=== PATIENT | male | born 1950 | race Caucasian/White ===

== ENCOUNTER 2017-06-29 09:57 | Inpatient (IN) ==
[2017-06-29] MEDS ORDERED: ZOSYN 3.375 GM in NS 50 ML IV SCH (12:30)
[2017-06-29] MEDS: MORPHINE IV PRN ×2 (12:44→17:54)
[2017-06-29] MEDS ORDERED: FENTANYL ONE (13:10)
[2017-06-29] MEDS ORDERED: DIPRIVAN 1% ONE (13:10)
[2017-06-29] MEDS ORDERED: XYLOCAINE-MPF 2% ONE (13:11)
[2017-06-29] MEDS ORDERED: SENSORCAINE 0.5%-EPI 1:200,000 ONE (13:13)
[2017-06-29] MEDS ORDERED: LR 1,000 ML ONE (13:13)
[2017-06-29] MEDS ORDERED: ZOSYN 3.375 GM in NS 50 ML IV ONE (13:35)
[2017-06-29] MEDS ORDERED: VERSED ONE (13:56)
[2017-06-29] MEDS ORDERED: ROBINUL ONE (14:32)
[2017-06-29] MEDS ORDERED: MORPHINE ONE (15:54)
[2017-06-29] MEDS ORDERED: ZOFRAN IV PRN (16:31)
[2017-06-29] MEDS: ZOSYN 3.375 GM in NS 50 ML IV SCH ×2 (16:37→21:37)
[2017-06-29] MEDS: FISH OIL CONCENTRATE PO SCH (21:38)
[2017-06-29] MEDS: PRILOSEC PO SCH (21:38)
[2017-06-29] MEDS: PERIDEX MT SCH (21:38)
[2017-06-29] MEDS: REMERON PO SCH ×2 (21:38→21:39)
[2017-06-29] MEDS: NORCO-10 PO PRN (21:38)
[2017-06-30] MEDS: MORPHINE IV PRN ×8 (00:15→21:26)
[2017-06-30] MEDS: ZOSYN 3.375 GM in NS 50 ML IV SCH ×4 (05:04→21:20)
[2017-06-30] MEDS ORDERED: BLISTEX MEDICATED BERRY LIP BALM TOP ONE (05:46)
[2017-06-30] MEDS: PRILOSEC PO SCH ×2 (08:06→20:05)
[2017-06-30] MEDS: FISH OIL CONCENTRATE PO SCH ×2 (08:06→20:05)
[2017-06-30] MEDS: PERIDEX MT SCH ×2 (08:06→20:06)
[2017-06-30] MEDS: MYCOSTATIN SUSP PO SCH ×2 (16:58→20:06)
[2017-06-30] MEDS ORDERED: MYCOSTATIN SUSP PO SCH ×2 (17:00)
[2017-06-30] MEDS: REMERON PO SCH (20:06)
[2017-07-01] MEDS: MORPHINE IV PRN ×7 (00:52→21:50)
[2017-07-01] MEDS: ZOSYN 3.375 GM in NS 50 ML IV SCH ×4 (04:27→22:11)
[2017-07-01] MEDS: PERIDEX MT SCH ×2 (10:11→21:18)
[2017-07-01] MEDS: FISH OIL CONCENTRATE PO SCH ×2 (10:11→21:18)
[2017-07-01] MEDS: PRILOSEC PO SCH ×2 (10:11→21:18)
[2017-07-01] MEDS: MYCOSTATIN SUSP PO SCH ×4 (10:14→22:11)
[2017-07-01] MEDS: REMERON PO SCH (21:18)
[2017-07-02] MEDS: MORPHINE IV PRN ×3 (00:57→06:31)
[2017-07-02] MEDS: ZOSYN 3.375 GM in NS 50 ML IV SCH ×3 (03:21→17:04)
[2017-07-02] MEDS: PRILOSEC PO SCH (10:58)
[2017-07-02] MEDS: PERIDEX MT SCH (10:58)
[2017-07-02] MEDS: FISH OIL CONCENTRATE PO SCH (10:58)
[2017-07-02] MEDS: MYCOSTATIN SUSP PO SCH ×3 (10:59→17:04)
[2017-07-02] MEDS: NORCO-10 PO PRN ×3 (10:59→18:58)
[2017-07-02 20:25] VITALS: BP 121/80
== END 2017-07-02 21:30 | disposition home or self-care (01) ==
LOC: DIRADM 09:57 → 4N 11:52
PROVIDERS: ADMIT Surgery; ATTEND Surgery